=== PATIENT | female | born 1945 ===

== ENCOUNTER 2016-09-13 16:38 | Emergency (ER) | payer MEDICARE, MEDICAID ==
[2016-09-13 17:43] VITALS: BP 152/74; PULSE 79; RESP 18; TEMP 98.1; O2SAT 100
--- NOTE | 2016-09-13 18:03 | C.PDOC ---
History Of Present Illness A 71 year old female, with a past medical history of HTN and Diabetes, presents to the emergency room with complaints of persistent cough and nasal congestion for three days. (+) throat itching. Patient states coughing gets worse at night time and while she is coughing, she feels it in her chest. No chest pain currently. NO sob or dyspnea. Patient denies chest pain, a history of Asthma, fever, nausea, vomiting, dizziness, or any other complaints. Pt complaint with medication, no change in glucose. Did not try any medication OTC. Time Seen by Provider: 09/13/16 17:52 Chief Complaint (Nursing): Flu-like Symptoms History Per: Patient, Family (Son) History/Exam Limitations: language barrier Onset/Duration Of Symptoms: Days (Few days) Current Symptoms Are (Timing): Still Present Location Of Pain: Throat Sick Contacts (Context): None Associated Symptoms: Cough. denies: Fever, Chills, Nausea, Vomiting, Diarrhea Ear Symptoms: Bilateral: None Severity: Mild Recent travel outside of the [place]: No Past Medical History Reviewed: Historical Data, Nursing Documentation, Vital Signs Vital Signs: Last Vital Signs Temp 98.1 F 09/13/16 17:42 Pulse 79 09/13/16 17:42 Resp 18 09/13/16 17:42 BP 152/74 H 09/13/16 17:42 Pulse Ox 100 09/13/16 18:52 - Medical History PMH: HTN, Hypercholesterolemia Family History: States: No Known Family Hx - Social History Hx Alcohol Use: No Hx Substance Use: No - Immunization History Hx Tetanus Toxoid Vaccination: Yes Hx Influenza Vaccination: No Hx Pneumococcal Vaccination: No Review Of Systems Except As Marked, All Systems Reviewed And Found Negative. Constitutional: Negative for: Fever, Chills ENT: Positive for: Nose Discharge (Runny nose), Other (Itchy throat). Negative for: Throat Pain, Throat Swelling Cardiovascular: Positive for: Chest Pain (Only while coughing at nights. ) Respiratory: Positive for: Cough. Negative for: Shortness of Breath Gastrointestinal: Negative for: Nausea, Vomiting, Diarrhea Neurological: Positive for: Headache. Negative for: Dizziness Physical Exam - Physical Exam Appears: Non-toxic, No Acute Distress Skin: Normal Color, Warm, Dry, No Rash Head: Atraumatic, Normacephalic Eye(s): bilateral: Normal Inspection, EOMI Ear(s): Bilateral: Normal Nose: Normal, No Discharge Oral Mucosa: Moist Throat: Normal, No Erythema, No Exudate Neck: Normal, Normal ROM, No Midline Cervical Tenderness, No Paracervical Tenderness, Supple Chest: Symmetrical, No Deformity, No Tenderness Cardiovascular: Rhythm Regular Respiratory: Normal Breath Sounds, No Rales, No Rhonchi, No Wheezing Gastrointestinal/Abdominal: Soft, No Tenderness, No Guarding, No Rebound Back: No CVA Tenderness, No Vertebral Tenderness Extremity: No Normal ROM, No Tenderness, No Swelling Neurological/Psych: Oriented x3, Normal Speech, Normal Cognition ED Course And Treatment O2 Sat by Pulse Oximetry: 100 - Radiology CXR: Interpreted by Me, Viewed By Me CXR Interpretation: Yes: No Acute Disease Progress Note: Case dsicussed with Dr Berg, agreed upon plan and treatment. Discussed signs of concern and instructed to follow up with PMD tomorrow or return to ER if symptoms persist or worsen. Disposition - Disposition Referrals: Arturo Miller MD [Medical Doctor] - Disposition: HOSPITALIZED Disposition Time: 18:48 Condition: STABLE Additional Instructions: Vaya a kerns mdico o la clnica en 2-5 robledo sin falta, para mas evaluacin. [place] los medicamentos ezekiel indicado. Volver a la humberto de emergencia en cualquier momento si los sntomas persisten o empeoran. Prescriptions: Dm/Acetaminophen/Diphenhydramn [Diabetic Tussin Nighttime Liq] 10 ml PO Q6 PRN # 1 liquid PRN Reason: Cough And Congestion Fluticasone Nasal [Flonase] 1 actuation NS DAILY #1 spr Instructions: Upper Respiratory Infection (ED) Print Language: SYRIAN - Clinical Impression Clinical Impression: Cough - Scribe Statement The provider has reviewed the documentation as recorded by the Scribe Dread Breen All medical record entries made by the Scribe were at my direction and personally dictated by me. I have reviewed the chart and agree that the record accurately reflects my personal performance of the history, physical exam, medical decision making, and the department course for this patient. I have also personally directed, reviewed, and agree with the discharge instructions and disposition.
--- NOTE | 2016-09-14 08:46 | RAD ---
HISTORY: Upper respiratory infection COMPARISON: No prior. TECHNIQUE: Chest PA and lateral FINDINGS: LUNGS: No active pulmonary disease. PLEURA: No significant pleural effusion identified. No pneumothorax apparent. CARDIOVASCULAR: Normal. OSSEOUS STRUCTURES: No significant abnormalities. VISUALIZED UPPER ABDOMEN: Normal. OTHER FINDINGS: None. IMPRESSION: No active disease.
== END 2016-09-13 19:12 | disposition short-term general hospital (02) ==
LOC: C.ER 16:38
DX: R05 Cough (principal)

== ENCOUNTER 2017-09-07 09:59 | Emergency (ER) | payer MEDICARE, MEDICAID ==
[2017-09-07 10:19] VITALS: BMI 29.9
--- NOTE | 2017-09-07 10:55 | RAD ---
PROCEDURE: CHEST RADIOGRAPH, 1 VIEW HISTORY: cough COMPARISON: Chest radiograph dated 09/13/2016. FINDINGS: LUNGS: Clear. PLEURA: No pneumothorax or pleural fluid seen. CARDIOVASCULAR: Atherosclerotic aortic calcifications. Cardiomediastinal silhouette within normal. OSSEOUS STRUCTURES: Unchanged. VISUALIZED UPPER ABDOMEN: Normal. OTHER FINDINGS: None. IMPRESSION: No active disease.
--- NOTE | 2017-09-07 11:31 | C.PDOC ---
History Of Present Illness 72-year-old female, PMHx includes Hypertension and Diabetes (well controlled), presents to the emergency department with complaints of chills and productive cough with white mucus for the past 5 days. Patient denies chest pain, shortness of breath, nausea/vomiting, back pain or any other associated symptoms. No other complaints at this time. Time Seen by Provider: 09/07/17 10:13 Chief Complaint (Nursing): Cough, Cold, Congestion History Per: Patient History/Exam Limitations: no limitations Current Symptoms Are (Timing): Still Present Past Medical History Reviewed: Historical Data, Nursing Documentation, Vital Signs Vital Signs: Last Vital Signs Temp 99.9 F H 09/07/17 11:34 Pulse 98 H 09/07/17 11:34 Resp 18 09/07/17 11:34 BP 112/68 09/07/17 11:34 Pulse Ox 96 09/10/17 12:15 - Medical History PMH: HTN, Hypercholesterolemia Family History: States: No Known Family Hx - Social History Hx Alcohol Use: No Hx Substance Use: No - Immunization History Hx Tetanus Toxoid Vaccination: Yes Hx Influenza Vaccination: Yes Hx Pneumococcal Vaccination: Yes Review Of Systems Constitutional: Positive for: Chills Cardiovascular: Negative for: Chest Pain, Palpitations Respiratory: Positive for: Shortness of Breath, Sputum Gastrointestinal: Negative for: Vomiting Musculoskeletal: Negative for: Back Pain Skin: Negative for: Rash Physical Exam - Physical Exam Appears: Non-toxic, No Acute Distress, Other (speaking in full sentences. Coughing occasionally ) Skin: Normal Color, Warm, Dry, No Rash Head: Normacephalic Eye(s): bilateral: PERRL Nose: Normal Oral Mucosa: Moist Lips: Normal Appearing Neck: Normal ROM Cardiovascular: Rhythm Regular (tachycardic), No Murmur Respiratory: Normal Breath Sounds, No Accessory Muscle Use, Other (occasional cough) Gastrointestinal/Abdominal: Soft, No Tenderness Extremity: Normal ROM, No Deformity, No Swelling Neurological/Psych: Oriented x3, Normal Speech ED Course And Treatment O2 Sat by Pulse Oximetry: 96 (RA) Pulse Ox Interpretation: Normal Progress Note: Chest X-Ray and flu AB ordered and reviewed. Patient treated with PO Tessalon and Tylenol. Disposition Counseled Patient/Family Regarding: Studies Performed, Diagnosis, Need For Followup, Rx Given - Disposition Referrals: [facility] [Outside] Disposition: HOME/ ROUTINE Disposition Time: 11:30 Condition: STABLE Additional Instructions: FOLLOW UP WITH YOUR DOCTOR OR CLINIC IN 1-2 DAYS USE MEDICATIONS NEEDED DRINK PLENTY OF FLUIDS RETURN TO EMERGENCY ROOM IF SYMPTOMS WORSEN SEGUIMIENTO CON CACERES [place] O CLNICA EN 1-2 HAGEN USE MEDICAMENTOS SEGN SEA NECESARIO BEBER MUCHO LQUIDO REGRESE AL JAYE DE EMERGENCIA SI LOS SNTOMAS EMPEORAN Prescriptions: Benzonatate [Tessalon Perles] 100 mg PO BID PRN #15 sgl PRN Reason: Cough Naproxen 375 mg PO BID PRN #20 tablet PRN Reason: pain Instructions: Viral Upper Respiratory Infection, Adult (DC) Forms: [employer] (Kinyarwanda) Print Language: WELSH - Clinical Impression Clinical Impression: Viral syndrome, Viral disease, Upper respiratory infection - Scribe Statement The provider has reviewed the documentation as recorded by the Scribe (Khadijah Tenorio) All medical record entries made by the Scribe were at my direction and personally dictated by me. I have reviewed the chart and agree that the record accurately reflects my personal performance of the history, physical exam, medical decision making, and the department course for this patient. I have also personally directed, reviewed, and agree with the discharge instructions and disposition.
[2017-09-07 11:34] VITALS: BP 112/68; PULSE 98; RESP 18; TEMP 99.9
[2017-09-07 13:10] VITALS: O2SAT 96
== END 2017-09-07 11:41 | disposition home or self-care (01) ==
LOC: C.ER 09:59
DX: J06.9 Acute upper respiratory infection, unspecified (principal); I10 Essential (primary) hypertension; E11.9 Type 2 diabetes mellitus without complications; E78.00 Pure hypercholesterolemia, unspecified